=== PATIENT | female | born 1965 | race Caucasian/White ===

== ENCOUNTER → 2020-12-12 | Outpatient (CLI) | payer MEDICAID ==
[2020-12-12] VITALS (18 sets, daily range): BP systolic 116–143; BP diastolic 66–90
== END | disposition home or self-care (01) ==
LOC: CARD DIAG 11:46
PROVIDERS: ATTEND Nurse Practitioner Family
DX: R55 Syncope and collapse (principal)
CPT/HCPCS: 93660